=== PATIENT | female | born 1965 | race African-American/Black ===

== ENCOUNTER 2021-02-01 22:45 | Emergency (ER) | payer OTHER ==
[2021-02-01 23:21] VITALS: BP 135/72; PULSE 79; TEMP 98.6; BMI 38.7
[2021-02-03 23:07] LABS: SARS-CoV-2 NAA Not Detected (Not Detected)
== END 2021-02-02 00:30 | disposition home or self-care (01) ==
LOC: JER 22:45
DX: B34.9 Viral infection, unspecified (principal)
CPT/HCPCS: 87804; 99283-25; C9803; U0003; U0005

== ENCOUNTER 2021-07-08 22:13 | Emergency (ER) | payer OTHER ==
[2021-07-08 22:19] VITALS: BP 123/85; PULSE 96; TEMP 98.2; BMI 37.9
[2021-07-08] MEDS ORDERED: GABAPENTIN 300 MG CAPSULE PO ONE (22:41)
[2021-07-08] MEDS ORDERED: GABAPENTIN 300 MG CAPSULE ONE (23:02)
[2021-07-08 23:23] LABS: BASO % 0.8 % (0-2.0); EOS % 3.3 % (0-4.5); HEMATOCRIT 32.5 % (32.4-45.2); HEMOGLOBIN 11.3 GM/dL (10.7-15.3); LYMPH % 41.4 % (8-40); MCH 30.8 pg (25.7-33.7); MCHC 34.7 g/dl (32.0-36.0); MEAN CELL VOLUME 88.7 fl (80-96); MEAN PLT VOLUME 7.9 fl (7.5-11.1); MONO % 5.9 % (3.8-10.2); NEUT % 48.6 % (42.8-82.8); PLATELET COUNT 352 10^3/uL (134-434); RBC 3.67 M/mm3 (3.60-5.2); RDW 13.7 % (11.6-15.6); WHITE BLOOD COUNT 5.3 K/mm3 (4.0-10.0)
[2021-07-08 23:45] LABS: ALBUMIN 3.5 g/dl (3.4-5.0); BLOOD UREA NITROGEN 16.7 mg/dL (7-18); CALCIUM 8.6 mg/dL (8.5-10.1)
[2021-07-08 23:48] LABS: CREATININE 0.7 mg/dL (0.55-1.3)
[2021-07-08 23:50] LABS: BILIRUBIN,TOTAL 1.3 mg/dL (0.2-1); TOT PROT 6.6 g/dl (6.4-8.2)
[2021-07-08 23:53] LABS: LACTIC ACID 2.3 mmol/L (0.4-2.0)
== END 2021-07-09 00:27 | disposition home or self-care (01) ==
LOC: JER 22:13
DX: T50.905A Adverse effect of unspecified drugs, medicaments and biological substances, initial encounter (principal)
CPT/HCPCS: 36415; 80053; 83605; 85025; 99283-25